=== PATIENT | female | born 1930 | race Caucasian/White ===

== ENCOUNTER 2016-09-20 00:57 | Emergency (ER) | payer MEDICARE, BC ==
--- NOTE | 2016-09-20 01:36 | ERPHSYRPT ---
- History of Present Illness Time Seen by Provider: 09/20/16 01:21 Source: patient, family (DAUGHTER), other (N.N.) Exam Limitations: no limitations Patient Subjective Stated Complaint: reports with c/o diarrhea x 3 days et decreased appetite, despite dementia - up to bathroom tonight x 40 minutes ago with fall from seated position on the stool, landing on soft stack of toilet paper - family reports some momentary AMS but no LOC - pt denies pain at this time Triage Nursing Assessment: lifted to cart per ems personnel - moves all extremities with equal strength. resps easy - non-labored. skin pwd - no rash/ injury. alert/oriented x 1 - pleasantly confused per normal - pupils SHANEL: 3mm , sluggish Physician History: ABOUT 80 MINUTES AGO PT WAS SITTING ON THE TOILET LEANING OVER TO THE RIGHT SIDE ON TOILET PAPER STARRING WITHOUT TREMORS OR SHAKING. PT DENIES ANY PAIN, SHORTNESS OF AIR, ABDOMINAL PAIN; ADMITS TO DIARRHEA. PT HAS NEVER HAD SEIZURES. Allergies/Adverse Reactions: No Known Drug Allergies Allergy (Verified 09/20/16 01:09) Home Medications: Diltiazem HCl [Diltiazem ER] 360 mg PO DAILY 05/02/15 [History] Famotidine 20 mg [Pepcid 20 MG] 20 mg PO BID 05/02/15 [History] Simvastatin 10 mg PO DAILY 05/02/15 [History] Magnesium 400 mg PO DAILY 09/22/15 [History] Rivaroxaban [Xarelto] 10 mg PO DAILY 09/22/15 [History] Losartan Potassium 50 mg [Cozaar 50 MG] 50 mg PO DAILY 10/22/15 [History] Rabeprazole Sodium [Aciphex] 20 mg PO DAILY 10/22/15 [History] Bumetanide 1 mg [Bumex 1 mg] 1 mg PO DAILY 01/04/16 [History] Potassium Chloride 10 Meq Tab* [Klor Con 10 MEQ] 10 meq PO BID 01/04/16 [ History] Memantine HCl 5 mg [Namenda 5 MG] 5 mg PO DAILY 01/14/16 [History] Hx Tetanus, Diphtheria Vaccination/Date Given: No Hx Influenza Vaccination/Date Given: No Hx Pneumococcal Vaccination/Date Given: No Immunizations Up to Date: Yes - Review of Systems Constitutional: No Fever, No Chills Respiratory: No Dyspnea Cardiac: No Chest Pain Abdominal/Gastrointestinal: Diarrhea, No Abdominal Pain, No Vomiting Neurological: No Headache Endocrine: No Excessive Sweating All Other Systems: Reviewed and Negative - Past Medical History Pertinent Past Medical History: Yes Neurological History: Dementia ENT History: No Pertinent History Cardiac History: Other Respiratory History: No Pertinent History Endocrine Medical History: No Pertinent History Musculoskeletal History: Arthritis GI Medical History: Diverticulitis, GERD, Hemorrhoids History: No Pertinent History Psycho-Social History: No Pertinent History Female Reproductive Disorders: No Pertinent History Other Medical History: leaking valve per pt. - Past Surgical History Past Surgical History: Yes Neuro Surgical History: No Pertinent History Cardiac: No Pertinent History Respiratory: No Pertinent History Gastrointestinal: Cholecystectomy Genitourinary: No Pertinent History Musculoskeletal: Other Female Surgical History: Hysterectomy, Mastectomy Other Surgical History: right breast mastectomy,bunionectomy venita. feet,,venita IOL with lens implant,cyst exc.buttock and posterior leg,exc. salivary gland,left upper arm sutured after knife cut. - Social History Smoking Status: Never smoker Exposure to second hand smoke: No Alcohol Use: None Drug Use: none Patient Lives Alone: No Significant Family History: no pertinent family hx - Female History Hx Last Menstrual Period: n/a Hx Now: No - Nursing Vital Signs Nursing Vital Signs: Initial Vital Signs Temperature 98.4 F Temperature Source Oral Pulse Rate 90 Respiratory Rate 14 Blood Pressure [] 111/59 Pain Intensity 0 - Physical Exam General Appearance: no apparent distress, alert Eye Exam: PERRL/EOMI, eyes nml inspection Ears, Nose, Throat Exam: TMs normal, pharynx normal, moist mucous membranes Neck Exam: normal inspection Respiratory Exam: lungs clear Cardiovascular Exam: normal heart sounds Gastrointestinal/Abdomen Exam: soft, other (B.S. MILDLY HYPERACTIVE AND NORMOTONIC) Back Exam: normal range of motion Extremity Exam: normal range of motion, No pedal edema Neurologic Exam: alert, cooperative, normal mood/affect, sensation nml, other ( ORIENTED TO PERSON AND PLACE.), No motor deficits Skin Exam: warm, dry SpO2 Interpretation: normal SpO2: 95 Oxygen Delivery: Room Air - Course Nursing assessment & vital signs reviewed: Yes EKG Interpreted by Me: RATE (91), Sinus Rhythm, NORMAL AXIS, Non-specific ST Changes - Radiology Exams Chest X-ray Interpretation: Interpreted by me, No Pneumonia - CT Exams Head CT Interpretation: Tele-radiologist Report (NO EVIDENCE OF ACUTE INTRA-AXIAL OR CRANIAL BONE ABNORMALITIES.) Ordered Tests: Active Orders 24 hr Category Date Time Status ACCUCHECK [Accucheck] STAT Care 09/20/16 01:17 Active Cath [Catheter-[place]] STAT Care 09/20/16 02:00 Active EKG-ER Only STAT Care 09/20/16 01:20 Active IV Insertion STAT Care 09/20/16 01:37 Active CHEST 1 VIEW (PORTABLE) Stat Exams 09/20/16 01:38 Taken HEAD WITHOUT CONTRAST [CT] Stat Exams 09/20/16 01:37 Taken AMYLASE Stat Lab 09/20/16 01:50 Completed CBC W DIFF Stat Lab 09/20/16 01:50 Completed CMP Stat Lab 09/20/16 01:50 Completed LIPASE Stat Lab 09/20/16 01:50 Completed MAG [MAGNESIUM] Stat Lab 09/20/16 01:50 Completed Manual Differential NC Stat Lab 09/20/16 01:50 Completed TROPONIN Stat Lab 09/20/16 01:50 Completed UA W/ MICROSCOPIC Stat Lab 09/20/16 02:00 Completed Urine Triage Profile Stat Lab 09/20/16 02:00 Completed Medication Summary Generic Name Dose Route Start Last Admin Trade Name Freq PRN Reason Stop Dose Admin Sodium Chloride 1,000 mls @ 999 mls/hr 09/20/16 02:39 Sodium Chloride 0.9% 1000 Ml IV 09/20/16 03:39 .Q1H1M STA Discontinued Medications Generic Name Dose Route Start Last Admin Trade Name Freq PRN Reason Stop Dose Admin Sodium Chloride 1,000 mls @ 999 mls/hr 09/20/16 01:37 09/20/16 02:00 Sodium Chloride 0.9% 1000 Ml IV 09/20/16 02:37 999 mls/hr .Q1H1M STA Administration Sodium Chloride Confirm 09/20/16 01:47 Sodium Chloride 0.9% 1000 Ml Administered 09/20/16 01:48 Dose 1,000 mls @ ud .ROUTE .[employer] Lab/Rad Data: Laboratory Result Diagrams 09/20/16 01:50 09/20/16 01:50 Laboratory Results 09/20/16 09/20/16 09/20/16 Range/Units 02:00 02:00 01:50 WBC (4.0-10.5) K/mm3 RBC (4.1-5.4) M/mm3 Hgb (12.0-16.0) gm/dl Hct (35-47) % MCV (78-100) fl MCH (26-32) pg MCHC (32-36) g/dl RDW (11.5-14.0) % Plt Count (150-450) K/mm3 MPV (6-9.5) fl Segmented Neutrophils (36.0-66.0) % Lymphocytes (Manual) (24-44) % Monocytes (Manual) (0.0-12.0) % Differential Comment Platelet Estimate (NORMAL) Sodium (136-145) mEq/L Potassium (3.5-5.1) mEq/L Chloride (98-107) mEq/L Carbon Dioxide (21-32) mEq/L Anion Gap (5-15) MEQ/L BUN (9-20) mg/dL Creatinine (0.55-1.30) mg/dl Estimated GFR ML/MIN Glucose (70-110) MG/DL Calcium (8.5-10.1) mg/dL Magnesium 2.1 (1.8-2.4) mg/dL Total Bilirubin (0.2-1.0) mg/dL AST (15-37) U/L ALT (12-78) U/L Alkaline Phosphatase (46-116) U/L Troponin I (0.000-0.056) ng/ml Serum Total Protein (6.4-8.2) gm/dL Albumin (3.4-5.0) g/dL Amylase (25-115) U/L Lipase (73-393) U/L Ur Collection Type CATH Urine Color YELLOW (YELLOW) Urine Appearance CLEAR (CLEAR) Urine pH 5.5 (5-6) Ur Specific [place] 1.010 (1.005-1.025) Urine Protein TRACE (Negative) Urine Glucose (UA) NEGATIVE (NEGATIVE) mg/dL Urine Ketones NEGATIVE (NEGATIVE) Urine Nitrite NEGATIVE (NEGATIVE) Urine Bilirubin NEGATIVE (NEGATIVE) Urine Urobilinogen 0.2 (0-1) mg/dL Urine WBC (Auto) NEGATIVE (NEGATIVE) Urine RBC (Auto) NEGATIVE (0-5) Wallace/ul Urine Bacteria RARE (NEGATIVE) /HPF Urine Mucus SLIGHT (NEGATIVE) /HPF Urine Opiates Level NEG. (NEGATIVE) Ur Methadone NEG. (NEGATIVE) Urine Barbiturates NEG. (NEGATIVE) Ur Phencyclidine (PCP) NEG. (NEGATIVE) Urine Amphetamine NEG. (NEGATIVE) U Benzodiazepine Level NEG. (NEGATIVE) Urine Cocaine NEG. (NEGATIVE) Urine Marijuana (THC) NEG. (NEGATIVE) Specimen Received 09/20/16:0200 09/20/16 09/20/16 Range/Units 01:50 01:50 WBC 7.0 (4.0-10.5) K/mm3 RBC 4.00 L (4.1-5.4) M/mm3 Hgb 12.2 (12.0-16.0) gm/dl Hct 37.1 (35-47) % MCV 92.8 (78-100) fl MCH 30.5 (26-32) pg MCHC 32.9 (32-36) g/dl RDW 13.4 (11.5-14.0) % Plt Count 290 (150-450) K/mm3 MPV 10.3 H (6-9.5) fl Segmented Neutrophils 86 H (36.0-66.0) % Lymphocytes (Manual) 6 L (24-44) % Monocytes (Manual) 8 (0.0-12.0) % Differential Comment NORMAL Platelet Estimate NORMAL (NORMAL) Sodium 134 L (136-145) mEq/L Potassium 4.3 (3.5-5.1) mEq/L Chloride 97 L (98-107) mEq/L Carbon Dioxide 27.7 (21-32) mEq/L Anion Gap 13.1 (5-15) MEQ/L BUN 33 H (9-20) mg/dL Creatinine 1.41 H (0.55-1.30) mg/dl Estimated GFR 38 ML/MIN Glucose 123 H (70-110) MG/DL Calcium 9.1 (8.5-10.1) mg/dL Magnesium (1.8-2.4) mg/dL Total Bilirubin 0.3 (0.2-1.0) mg/dL AST 19 (15-37) U/L ALT 10 L (12-78) U/L Alkaline Phosphatase 152 H (46-116) U/L Troponin I < 0.017 (0.000-0.056) ng/ml Serum Total Protein 7.4 (6.4-8.2) gm/dL Albumin 3.4 (3.4-5.0) g/dL Amylase 45 (25-115) U/L Lipase 195 (73-393) U/L Ur Collection Type Urine Color (YELLOW) Urine Appearance (CLEAR) Urine pH (5-6) Ur Specific [place] (1.005-1.025) Urine Protein (Negative) Urine Glucose (UA) (NEGATIVE) mg/dL Urine Ketones (NEGATIVE) Urine Nitrite (NEGATIVE) Urine Bilirubin (NEGATIVE) Urine Urobilinogen (0-1) mg/dL Urine WBC (Auto) (NEGATIVE) Urine RBC (Auto) (0-5) Wallace/ul Urine Bacteria (NEGATIVE) /HPF Urine Mucus (NEGATIVE) /HPF Urine Opiates Level (NEGATIVE) Ur Methadone (NEGATIVE) Urine Barbiturates (NEGATIVE) Ur Phencyclidine (PCP) (NEGATIVE) Urine Amphetamine (NEGATIVE) U Benzodiazepine Level (NEGATIVE) Urine Cocaine (NEGATIVE) Urine Marijuana (THC) (NEGATIVE) Specimen Received - Departure Time of Disposition: 03:03 Departure Disposition: Home Clinical Impression: DEHYDRATION, DIARRHEA, DEMENTIA, ALTERED MENTAL STATUS, ARTHRITIS, GERD Condition: Fair Critical Care Time: No Referrals: KIRAN OBREGON MD [Primary Care Provider] - Instructions: Dehydration -- Adult, Diarrhea and Traveler's Diarrhea -- Adult Additional Instructions: FOLLOW UP WITH PRIVATE DOCTOR TOMORROW. DRINK MORE WATER.
[2016-09-20] MEDS ORDERED: Sodium Chloride 0.9% 1000 ML 1,000 ML IV STA ×2 (01:37→02:39)
[2016-09-20] MEDS ORDERED: Sodium Chloride 0.9% 1000 ML 1,000 ML ONE ×2 (01:47→03:03)
[2016-09-20 01:58] LABS: Mean Cell Volume 92.8 fl (78-100); Mean Corpuscular Hemoglobin 30.5 pg (26-32); Mean Platelet Volume 10.3 fl (6-9.5); Platelet Count 290 K/mm3 (150-450); Red Cell Distribution Width 13.4 % (11.5-14.0)
[2016-09-20 02:07] LABS: Bacteria RARE /HPF (NEGATIVE); COMPLETE URINE MICROSCOPIC? YES; Collection Type CATH; Mucus SLIGHT /HPF (NEGATIVE); Ph 5.5 (5-6)
[2016-09-20 02:20] LABS: ALBUMIN 3.4 g/dL (3.4-5.0); ALKALINE PHOSPHATASE 152 U/L (46-116); ANION GAP 13.1 MEQ/L (5-15); BILIRUBIN,TOTAL 0.3 mg/dL (0.2-1.0); BLOOD UREA NITROGEN 33 mg/dL (9-20); CHLORIDE 97 mEq/L (98-107); Carbon Dioxide 27.7 mEq/L (21-32); Glucose 123 MG/DL (70-110); LIPASE 195 U/L (73-393); Potassium 4.3 mEq/L (3.5-5.1); SGOT/AST 19 U/L (15-37); SGPT/ALT 10 U/L (12-78); SODIUM 134 mEq/L (136-145); Total Protein 7.4 gm/dL (6.4-8.2)
[2016-09-20 02:21] LABS: TROPONIN < 0.017 ng/ml (0.000-0.056)
[2016-09-20 03:01] LABS: Platelet Estimate NORMAL (NORMAL); Total Cells Counted 100
[2016-09-20 05:28] VITALS: BP 125/60; PULSE 89; O2SAT 98
--- NOTE | 2016-09-20 08:56 | XRAY ---
Indication: Altered mental status. Multiple contiguous axial images obtained through the head without contrast. Comparison: January 14, 2016 Stable age-appropriate global atrophy and minimal periventricular degenerative micro-ischemia. No acute intracranial hemorrhage, abnormal extra-axial fluid collection, or mass effect. Fourth ventricle is midline without hydrocephalus. Bony calvarium intact. Visualized paranasal sinuses and mastoid air cells are pneumatized and clear. Impression: Stable nonacute senile brain. Comment: Preliminary interpretation was made by [facility]. No discrepancy. CT DI 68.81
--- NOTE | 2016-09-20 08:57 | XRAY ---
Indication: Altered mental status. Comparison: January 04, 2016 Portable chest less inflated today again with right mastectomy, right axillary rose mary dissection, and scattered calcified granulomas. No focal infiltrate, consolidation, or large effusion. Heart is not enlarged. Bony thorax intact again with osteopenia and degenerative changes. Impression: Stable nonacute chest with chronic features.
== END 2016-09-20 04:29 | disposition home or self-care (01) ==
LOC: ED 00:57
DX: E86.0 Dehydration (principal); R19.7 Diarrhea, unspecified; F03.90 Unspecified dementia, unspecified severity, without behavioral disturbance, psychotic disturbance, mood disturbance, and anxiety; R41.82 Altered mental status, unspecified; M19.90 Unspecified osteoarthritis, unspecified site; K21.9 Gastro-esophageal reflux disease without esophagitis; W18.12XA Fall from or off toilet with subsequent striking against object, initial encounter; Z79.01 Long term (current) use of anticoagulants
CPT/HCPCS: 36000; 36415; 51702; 70450; 71010; 80053; 80307; 81000; 82150; 82962; 83690; 83735; 84484; 85025; 93005; 96360; 96361; 99284

== ENCOUNTER 2017-03-04 14:13 | Observation (INO) | payer MEDICARE, OTHER ==
[2017-03-04 14:29] LABS: Lactic Acid 3.9 (0.4-2.0)
[2017-03-04 14:31] LABS: Bilirubin NEGATIVE (NEGATIVE); Blood NEGATIVE Ery/ul (0-5); COMPLETE URINE MICROSCOPIC? YES; Collection Type CATH; Glucose 100 mg/dL (NEGATIVE); Leukocyte Esterase NEGATIVE (NEGATIVE)
[2017-03-04 14:32] LABS: BASOPHIL % 0.2 % (0.0-0.4); Eosinophil % 0.3 % (0.00-5.0); Granulocytes % 75.3 % (36.0-66.0); Lymphocytes % 15.6 % (24.0-44.0); Mean Cell Volume 90.8 fl (78-100); Mean Corpuscular Hemoglobin 30.5 pg (26-32); Monocytes % 8.6 % (0.0-12.0); Platelet Count 197 K/mm3 (150-450); Red Blood Count 4.23 M/mm3 (4.1-5.4); Red Cell Distribution Width 13.1 % (11.5-14.0); White Blood Count 5.8 K/mm3 (4.0-10.5)
[2017-03-04 14:42] LABS: ADD URINE CULTURE? NO (NO); Bacteria FEW /HPF (NEGATIVE); Epithelial Cells FEW /HPF (FEW)
[2017-03-04 15:04] LABS: ALBUMIN 3.7 g/dL (3.4-5.0); ALKALINE PHOSPHATASE 145 U/L (46-116); ANION GAP 18.5 MEQ/L (5-15); BLOOD UREA NITROGEN 14 mg/dL (9-20); CHLORIDE 89 mEq/L (98-107); Carbon Dioxide 24.1 mEq/L (21-32); Glucose 240 MG/DL (70-110); MAGNESIUM 1.8 mg/dL (1.8-2.4); Potassium 3.6 mEq/L (3.5-5.1); SGOT/AST 24 U/L (15-37); SODIUM 128 mEq/L (136-145); Total Protein 7.8 gm/dL (6.4-8.2)
[2017-03-04 15:12] LABS: SGPT/ALT 17 U/L (12-78)
[2017-03-04] MEDS ORDERED: Sodium Chloride 0.9% 1000 ML 1,000 ML IV SCH (15:15)
[2017-03-04] MEDS ORDERED: Sodium Chloride 0.9% 1000 ML 1,000 ML ONE (15:17)
[2017-03-04 15:19] LABS: TROPONIN < 0.017 ng/ml (0.000-0.056)
--- NOTE | 2017-03-04 15:47 | ERPHSYRPT ---
- History of Present Illness Time Seen by Provider: 03/04/17 14:14 Source: patient, family (daughter), EMS Patient Subjective Stated Complaint: daughter states pt has been feeling weak and not eating very well. daughter states this became worse today. Triage Nursing Assessment: pt pink, warm, dry. normally confused. has hx of alzheimers. pt afebrile. pt alert adn oriented x2. Physician History: CC: weakness Hx: 86 y/o patient of dr Obregon. She was doing mostly ok yest. Today she does not want to eat, weak all over, dizzy when up, some short of air. No fever chills, vomiting, diarrhea. No fall or injury. She has hx of dementia. She lives at home with daughter. Apparently not known to be diabetic. Allergies/Adverse Reactions: No Known Drug Allergies Allergy (Verified 03/04/17 14:18) Home Medications: Famotidine 20 mg [Pepcid 20 MG] 20 mg PO BID 05/02/15 [History] Simvastatin 10 mg PO DAILY 05/02/15 [History] Magnesium 400 mg PO DAILY 09/22/15 [History] Rivaroxaban [Xarelto] 10 mg PO DAILY 09/22/15 [History] Losartan Potassium 50 mg [Cozaar 50 MG] 50 mg PO DAILY 10/22/15 [History] Rabeprazole Sodium [Aciphex] 20 mg PO DAILY 10/22/15 [History] Bumetanide 1 mg [Bumex 1 mg] 1 mg PO DAILY 01/04/16 [History] Potassium Chloride 10 Meq Tab* [Klor Con 10 MEQ] 10 meq PO BID 01/04/16 [ History] Memantine HCl 5 mg [Namenda 5 MG] 5 mg PO DAILY 01/14/16 [History] Donepezil HCl 10 mg [Aricept 10 MG] 10 mg PO DAILY 03/04/17 [History] Hx Tetanus, Diphtheria Vaccination/Date Given: Yes (up to date) Hx Influenza Vaccination/Date Given: Yes (up to date) Hx Pneumococcal Vaccination/Date Given: Yes Immunizations Up to Date: Yes - Review of Systems Constitutional: Fatigue, Malaise, Weakness, Other (anorexic today), No Fever, No Chills Eyes: No Symptoms Ears, Nose, & Throat: No Symptoms Respiratory: No Cough, No Dyspnea Cardiac: No Chest Pain Abdominal/Gastrointestinal: No Abdominal Pain, No Nausea, No Vomiting, No Diarrhea Genitourinary Symptoms: No Dysuria Musculoskeletal: No Fall, No Injury Skin: No Rash Neurological: Dizziness, No Focal Weakness, No Headache, No Parasthesia All Other Systems: Reviewed and Negative - Past Medical History Pertinent Past Medical History: Yes Neurological History: Alzheimer's Disease, Dementia ENT History: No Pertinent History Cardiac History: Other Respiratory History: No Pertinent History Endocrine Medical History: No Pertinent History Musculoskeletal History: Arthritis GI Medical History: Diverticulitis, GERD, Hemorrhoids History: No Pertinent History Psycho-Social History: No Pertinent History Female Reproductive Disorders: No Pertinent History Other Medical History: leaking valve per pt. - Past Surgical History Past Surgical History: Yes Neuro Surgical History: No Pertinent History Cardiac: No Pertinent History Respiratory: No Pertinent History Gastrointestinal: Cholecystectomy Genitourinary: No Pertinent History Musculoskeletal: Other Female Surgical History: Hysterectomy, Mastectomy Other Surgical History: right breast mastectomy,bunionectomy venita. feet,,venita IOL with lens implant,cyst exc.buttock and posterior leg,exc. salivary gland,left upper arm sutured after knife cut. - Social History Smoking Status: Former smoker Exposure to second hand smoke: No Alcohol Use: None Drug Use: none Patient Lives Alone: No (lives with daughter) Significant Family History: no pertinent family hx - Female History Hx Now: No - Nursing Vital Signs Nursing Vital Signs: Initial Vital Signs Temperature 96.4 F Temperature Source Rectal Pulse Rate 73 Respiratory Rate 18 Blood Pressure [Right Arm] 159/81 Pain Intensity 0 - Physical Exam General Appearance: alert Eye Exam: PERRL/EOMI Ears, Nose, Throat Exam: moist mucous membranes Neck Exam: normal inspection, non-tender, supple Respiratory Exam: normal breath sounds Cardiovascular Exam: regular rate/rhythm Gastrointestinal/Abdomen Exam: soft, No tenderness, No distention Extremity Exam: normal inspection, No pedal edema Neurologic Exam: alert, cooperative, sensation nml, No motor deficits Skin Exam: warm, dry, No rash SpO2 Interpretation: normal SpO2: 96 Oxygen Delivery: Room Air Comments: 03/04/17 15:48 disoriented to date, knows daughter's name, place - Course Nursing assessment & vital signs reviewed: Yes EKG Interpreted by Me: RATE (65), Sinus [place], NORMAL AXIS, prolonged QT interval (QTc 475), Other (U wave) - Radiology Exams cxr X-ray Interpretation: Reviewed by me (COPD) Ordered Tests: Active Orders 24 hr Category Date Time Status Cath for Specimen-Straight STAT Care 03/04/17 14:30 Active EKG-ER Only STAT Care 03/04/17 14:14 Active IV Insertion STAT Care 03/04/17 14:14 Active Orthostatic Vital Signs STAT Care 03/04/17 14:39 Active Rectal Temperature STAT Care 03/04/17 14:30 Active CHEST 1 VIEW (PORTABLE) Stat Exams 03/04/17 14:14 Taken CBC W DIFF Stat Lab 03/04/17 14:28 Completed CMP Stat Lab 03/04/17 14:28 Completed Lactic Acid Stat Lab 03/04/17 14:27 Results MAGNESIUM Stat Lab 03/04/17 14:28 Completed TROPONIN Stat Lab 03/04/17 14:28 Completed UA W/ MICROSCOPIC Stat Lab 03/04/17 14:28 Completed Medication Summary Generic Name Dose Route Start Last Admin Trade Name Coltq PRN Reason Stop Dose Admin Sodium Chloride 1,000 mls @ 100 mls/hr 03/04/17 15:15 03/04/17 15:20 Sodium Chloride 0.9% 1000 Ml IV 04/03/17 15:14 100 mls/hr .Q10H EFFIE Administration Lab/Rad Data: Laboratory Result Diagrams 03/04/17 14:28 03/04/17 14:28 Laboratory Results 03/04/17 03/04/17 03/04/17 Range/Units 14:28 14:28 14:28 WBC 5.8 (4.0-10.5) K/mm3 RBC 4.23 (4.1-5.4) M/mm3 Hgb 12.9 (12.0-16.0) gm/dl Hct 38.4 (35-47) % MCV 90.8 (78-100) fl MCH 30.5 (26-32) pg MCHC 33.6 (32-36) g/dl RDW 13.1 (11.5-14.0) % Plt Count 197 (150-450) K/mm3 MPV 11.0 H (6-9.5) fl Gran % 75.3 H (36.0-66.0) % Lymphocytes % 15.6 L (24.0-44.0) % Monocytes % 8.6 (0.0-12.0) % Eosinophils % 0.3 (0.00-5.0) % Basophils % 0.2 (0.0-0.4) % Basophils # 0.01 (0-0.4) Sodium 128 L (136-145) mEq/L Potassium 3.6 (3.5-5.1) mEq/L Chloride 89 L (98-107) mEq/L Carbon Dioxide 24.1 (21-32) mEq/L Anion Gap 18.5 H (5-15) MEQ/L BUN 14 (9-20) mg/dL Creatinine 1.19 (0.55-1.30) mg/dl Estimated GFR 46 ML/MIN Glucose 240 H (70-110) MG/DL Lactic Acid (0.4-2.0) Calcium 9.3 (8.5-10.1) mg/dL Magnesium 1.8 (1.8-2.4) mg/dL Total Bilirubin 0.40 (0.2-1.0) mg/dL AST 24 (15-37) U/L ALT 17 (12-78) U/L Alkaline Phosphatase 145 H (46-116) U/L Troponin I < 0.017 (0.000-0.056) ng/ml Serum Total Protein 7.8 (6.4-8.2) gm/dL Albumin 3.7 (3.4-5.0) g/dL Ur Collection Type CATH Urine Color YELLOW (YELLOW) Urine Appearance CLEAR (CLEAR) Urine pH 7.0 (5-6) Ur Specific [place] 1.005 (1.005-1.025) Urine Protein 30 (Negative) Urine Ketones NEGATIVE (NEGATIVE) Urine Blood NEGATIVE (0-5) Wallace/ul Urine Nitrite NEGATIVE (NEGATIVE) Urine Bilirubin NEGATIVE (NEGATIVE) Urine Urobilinogen NORMAL (0-1) mg/dL Ur Leukocyte Esterase NEGATIVE (NEGATIVE) Ur Epithelial Cells FEW (FEW) /HPF Urine Bacteria FEW (NEGATIVE) /HPF Urine Glucose 100 (NEGATIVE) mg/dL Specimen Received 03-04 1430 03/04/17 Range/Units 14:27 WBC (4.0-10.5) K/mm3 RBC (4.1-5.4) M/mm3 Hgb (12.0-16.0) gm/dl Hct (35-47) % MCV (78-100) fl MCH (26-32) pg MCHC (32-36) g/dl RDW (11.5-14.0) % Plt Count (150-450) K/mm3 MPV (6-9.5) fl Gran % (36.0-66.0) % Lymphocytes % (24.0-44.0) % Monocytes % (0.0-12.0) % Eosinophils % (0.00-5.0) % Basophils % (0.0-0.4) % Basophils # (0-0.4) Sodium (136-145) mEq/L Potassium (3.5-5.1) mEq/L Chloride (98-107) mEq/L Carbon Dioxide (21-32) mEq/L Anion Gap (5-15) MEQ/L BUN (9-20) mg/dL Creatinine (0.55-1.30) mg/dl Estimated GFR ML/MIN Glucose (70-110) MG/DL Lactic Acid 3.9 H (0.4-2.0) Calcium (8.5-10.1) mg/dL Magnesium (1.8-2.4) mg/dL Total Bilirubin (0.2-1.0) mg/dL AST (15-37) U/L ALT (12-78) U/L Alkaline Phosphatase (46-116) U/L Troponin I (0.000-0.056) ng/ml Serum Total Protein (6.4-8.2) gm/dL Albumin (3.4-5.0) g/dL Ur Collection Type Urine Color (YELLOW) Urine Appearance (CLEAR) Urine pH (5-6) Ur Specific [place] (1.005-1.025) Urine Protein (Negative) Urine Ketones (NEGATIVE) Urine Blood (0-5) Wallace/ul Urine Nitrite (NEGATIVE) Urine Bilirubin (NEGATIVE) Urine Urobilinogen (0-1) mg/dL Ur Leukocyte Esterase (NEGATIVE) Ur Epithelial Cells (FEW) /HPF Urine Bacteria (NEGATIVE) /HPF Urine Glucose (NEGATIVE) mg/dL Specimen Received - Progress Progress Note: 03/04/17 15:49 Pt was orthostatic with BP dropping 153/81 to 96/61 with associated dizziness. Will check A1c as not known to be diabetic but hyperglycemia today. Called Dr Thiago Fong for [place] for observation. No source or sign of infection. Will see patient in: hospital (observation) Counseled pt/family regarding: lab results, diagnosis, need for follow-up, rad results - Departure Time of Disposition: 15:50 Departure Disposition: Observation Clinical Impression: Hyponatremia, General weakness, Hyperglycemia, Orthostasis Condition: Stable Critical Care Time: No Referrals: KIRAN OBREGON MD [Primary Care Provider] -
[2017-03-04] MEDS ORDERED: NovoLOG Insulin SQ PRN (16:27)
[2017-03-04] MEDS ORDERED: TYLENOL 325 MG PO PRN (16:27)
--- NOTE | 2017-03-04 20:24 | XRAY ---
Indication: Weakness. Comparison: September 20, 2016. Portable chest again hyperinflated and clear with incidental scattered calcified granulomas. Heart and mediastinal structures within normal limits. Bony thorax intact again with osteopenia and degenerative changes. Stable right breast and right axilla postsurgical changes. Impression: Nonacute hyperinflated chest with chronic features.
[2017-03-04] MEDS: Pepcid 20 MG PO SCH (21:53)
[2017-03-04] MEDS: Klor Con 10 MEQ PO SCH (21:53)
[2017-03-05] MEDS: Sodium Chloride 0.9% 1000 ML 1,000 ML IV SCH ×2 (00:32→10:21)
[2017-03-05 05:28] LABS: BASOPHIL % 0.2 % (0.0-0.4); Eosinophil % 0.5 % (0.00-5.0); Granulocytes % 58.6 % (36.0-66.0); Lymphocytes % 25.6 % (24.0-44.0); Mean Cell Volume 90.3 fl (78-100); Mean Platelet Volume 11.2 fl (6-9.5); Monocytes % 15.1 % (0.0-12.0); Platelet Count 210 K/mm3 (150-450); Red Blood Count 3.62 M/mm3 (4.1-5.4); Red Cell Distribution Width 13.1 % (11.5-14.0); White Blood Count 5.8 K/mm3 (4.0-10.5)
[2017-03-05 05:35] LABS: Mean Corpuscular Hemoglobin 30.3 pg (26-32)
[2017-03-05 05:43] LABS: ANION GAP 13.4 MEQ/L (5-15); BLOOD UREA NITROGEN 17 mg/dL (9-20); CHLORIDE 97 mEq/L (98-107); Carbon Dioxide 25.9 mEq/L (21-32); Glucose 100 MG/DL (70-110); Potassium 4.5 mEq/L (3.5-5.1); SODIUM 132 mEq/L (136-145)
[2017-03-05] MEDS: Pepcid 20 MG PO SCH (08:55)
[2017-03-05] MEDS: Klor Con 10 MEQ PO SCH (08:55)
[2017-03-05] MEDS ORDERED: Protonix 40MG Tablet PO SCH (10:00)
[2017-03-05] MEDS ORDERED: MAGNESIUM 400 MG PO SCH (10:00)
[2017-03-05] MEDS ORDERED: MAG-OX 400 PO SCH (10:00)
[2017-03-05] MEDS ORDERED: Aricept 10 MG PO SCH (10:00)
[2017-03-05] MEDS ORDERED: PREVNAR 13 SYRINGE IM ONE (10:00)
[2017-03-05] MEDS ORDERED: Zocor 10MG PO SCH (10:00)
[2017-03-05] MEDS ORDERED: Namenda 5 MG PO SCH (10:00)
[2017-03-05] MEDS ORDERED: XARELTO 10 MG TABLET PO SCH (10:00)
[2017-03-05] MEDS ORDERED: NON-FORMULARY ITEM (Rabeprazole Sodium [Aciphex] 20 MG) PO SCH (10:00)
[2017-03-05 11:20] VITALS: BP 135/68; PULSE 72; O2SAT 97
--- NOTE | 2017-03-05 13:21 | PCM.SSS ---
History of Present Illness - Chief Complaint Chief Complaint: weakness for 1-2 days History of Present Illness: is a 86 year old female.86 was doing mostly ok yest. Today she does not want to eat, weak all over, dizzy when up, some short of air. No fever chills, vomiting, diarrhea. No fall or injury. She has hx of dementia. She lives at home with daughter. Apparently not known to be diabetic. - Review of Systems Constitutional: Weakness, No Fever, No Chills Eyes: No Symptoms Ears, Nose, & Throat: No Symptoms Respiratory: No Cough, No Short Of Breath Cardiac: No Chest Pain, No Edema, No Syncope Abdominal/Gastrointestinal: No Abdominal Pain, No Nausea, No Vomiting, No Diarrhea Genitourinary Symptoms: No Dysuria Musculoskeletal: No Back Pain, No Neck Pain Skin: No Rash Neurological: No Dizziness, No Focal Weakness, No Sensory Changes Psychological: No Symptoms Endocrine: No Symptoms Hematologic/Lymphatic: No Symptoms Immunological/Allergic: No Symptoms Medications & Allergies Home Medications: Home Medication List Famotidine 20 mg [Pepcid 20 MG] 20 mg PO BID 05/02/15 [History Confirmed 03/04/17] Simvastatin 10 mg PO DAILY 05/02/15 [History Confirmed 03/04/17] Magnesium 400 mg PO DAILY 09/22/15 [History Confirmed 03/04/17] Rivaroxaban [Xarelto] 10 mg PO DAILY 09/22/15 [History Confirmed 03/04/17] Losartan Potassium 50 mg [Cozaar 50 MG] 50 mg PO DAILY 10/22/15 [History Confirmed 03/04/17] Rabeprazole Sodium [Aciphex] 20 mg PO DAILY 10/22/15 [History Confirmed 03/04/17 ] Bumetanide 1 mg [Bumex 1 mg] 1 mg PO DAILY 01/04/16 [History Confirmed 12/16] Potassium Chloride 10 Meq Tab* [Klor Con 10 MEQ] 10 meq PO BID 01/04/16 [ History Confirmed 03/04/17] Memantine HCl 5 mg [Namenda 5 MG] 5 mg PO DAILY 01/14/16 [History Confirmed 03/04/17] Donepezil HCl 10 mg [Aricept 10 MG] 10 mg PO DAILY 03/04/17 [History Confirmed 03/04/17] Allergies/Adverse Reactions: Allergies Allergy/AdvReac Type Severity Reaction Status Date / Time No Known Drug Allergies Allergy Verified 03/04/17 16:29 - Past Medical History Past Medical History: Yes Neurological History: Alzheimer's Disease, Dementia ENT History: No Pertinent History Cardiac History: Other Respiratory History: No Pertinent History Endocrine Medical History: No Pertinent History Musculoskelatal History: Arthritis GI Medical History: Diverticulitis, GERD, Hemorrhoids History: No Pertinent History Pyscho-Social History: No Pertinent History Reproductive Disorders: No Pertinent History Comment: leaking valve per pt. - Female History Are you now?: No - Past Surgical History Past Surgical History: Yes Neuro Surgical History: No Pertinent History Cardiac History: No Pertinent History Respiratory Surgery: No Pertinent History GI Surgical History: Cholecystectomy Genitourinary Surgical Hx: No Pertinent History Musculskeletal Surgical Hx: Other Female Surgical History: Hysterectomy, Mastectomy Other Surgical History: right breast mastectomy,bunionectomy venita. feet,,venita IOL with lens implant,cyst exc.buttock and posterior leg,exc. salivary gland,left upper arm sutured after knife cut. - Social History Smoking Status: Former smoker Exposure to second hand smoke: No Alcohol: None Drug Use: none Significant Family History: no pertinent family hx - Physical Exam Vital Signs: Vital Signs - 24 hr Temp Pulse Resp BP Pulse Ox 03/05/17 11:19 98.1 F 72 18 135/68 97 03/05/17 07:15 98.0 F 78 18 131/74 95 03/05/17 04:00 98.3 F 71 16 129/63 95 03/04/17 23:59 98.4 F 64 18 113/59 96 03/04/17 19:50 97.6 F 68 17 137/77 96 03/04/17 18:00 18 03/04/17 16:31 98.0 F 74 18 148/66 97 03/04/17 16:27 98.0 F 74 18 148/66 97 03/04/17 16:25 98.0 F 74 148/66 03/04/17 15:57 77 18 138/75 97 03/04/17 15:51 96 03/04/17 15:29 73 18 159/81 96 03/04/17 14:15 96.4 F 03/04/17 14:13 96.4 F 67 18 154/82 99 General Appearance: no apparent distress, alert Neurologic Exam: alert, oriented x 3, cooperative, normal mood/affect, nml cerebellar function, nml station & gait, sensation nml, No motor deficits Eye Exam: PERRL/EOMI, eyes nml inspection Ears, Nose, Throat Exam: normal ENT inspection, TMs normal, pharynx normal, moist mucous membranes Neck Exam: normal inspection, non-tender, supple, full range of motion Respiratory Exam: normal breath sounds, lungs clear, No respiratory distress Cardiovascular Exam: regular rate/rhythm, normal heart sounds, normal peripheral pulses Gastrointestinal/Abdomen Exam: soft, normal bowel sounds, No tenderness, No mass Back Exam: normal inspection, normal range of motion, No CVA tenderness, No vertebral tenderness Extremity Exam: normal inspection, normal range of motion, pelvis stable Skin Exam: normal color, warm, dry, No rash Lymphatic Exam: No adenopathy Results - Labs Lab/Micro Results: Accuchecks Date 03/05/17 Date 03/05/17 Date 03/04/17 Date 03/04/17 Time 11:30 Time 07:20 Time 16:30 Accucheck Value: 106 Accucheck Value: 98 Accucheck Value: 102 Accucheck Value: 116 Lab Results-Last 24 Hours 03/04/17 03/05/17 03/05/17 Range/Units 17:09 05:20 05:20 WBC 5.8 (4.0-10.5) K/mm3 RBC 3.62 L (4.1-5.4) M/mm3 Hgb 11.0 L (12.0-16.0) gm/dl Hct 32.7 L (35-47) % MCV 90.3 (78-100) fl MCH 30.3 (26-32) pg MCHC 33.6 (32-36) g/dl RDW 13.1 (11.5-14.0) % Plt Count 210 (150-450) K/mm3 MPV 11.2 H (6-9.5) fl Gran % 58.6 (36.0-66.0) % Lymphocytes % 25.6 (24.0-44.0) % Monocytes % 15.1 H (0.0-12.0) % Eosinophils % 0.5 (0.00-5.0) % Basophils % 0.2 (0.0-0.4) % Basophils # 0.01 (0-0.4) Sodium 132 L (136-145) mEq/L Potassium 4.5 (3.5-5.1) mEq/L Chloride 97 L (98-107) mEq/L Carbon Dioxide 25.9 (21-32) mEq/L Anion Gap 13.4 (5-15) MEQ/L BUN 17 (9-20) mg/dL Creatinine 0.92 (0.55-1.30) mg/dl Estimated GFR > 60 ML/MIN Glucose 100 (70-110) MG/DL Lactic Acid 2.8 H (0.4-2.0) Calcium 8.9 (8.5-10.1) mg/dL Accuchecks Date 03/05/17 Date 03/05/17 Date 03/04/17 Date 03/04/17 Time 11:30 Time 07:20 Time 16:30 Accucheck Value: 106 Accucheck Value: 98 Accucheck Value: 102 Accucheck Value: 116 Assessment/Plan (1) General weakness Current Visit: Yes Status: Resolved Code(s): R53.1 - WEAKNESS (2) Hyperglycemia Current Visit: Yes Status: Resolved Code(s): R73.9 - HYPERGLYCEMIA, UNSPECIFIED (3) Hyponatremia Current Visit: Yes Status: Resolved Code(s): E87.1 - HYPO-OSMOLALITY AND HYPONATREMIA (4) Orthostasis Current Visit: Yes Status: Resolved Code(s): I95.1 - ORTHOSTATIC HYPOTENSION Hospital Summary - Hospital Course Hospital Course: Chief Complaint Diagnosis hyponatremia, hyperglycemia, weakness Allergies Allergy/AdvReac Type Severity Reaction Status Date / Time No Known Drug Allergies Allergy Verified 03/04/17 16:29 Vital Signs (Last 24 hours) Temp Pulse Resp BP Pulse Ox 03/05/17 11:19 98.1 F 72 18 135/68 97 03/05/17 07:15 98.0 F 78 18 131/74 95 03/05/17 04:00 98.3 F 71 16 129/63 95 03/04/17 23:59 98.4 F 64 18 113/59 96 03/04/17 19:50 97.6 F 68 17 137/77 96 03/04/17 18:00 18 03/04/17 16:31 98.0 F 74 18 148/66 97 03/04/17 16:27 98.0 F 74 18 148/66 97 03/04/17 16:25 98.0 F 74 148/66 03/04/17 15:57 77 18 138/75 97 03/04/17 15:51 96 03/04/17 15:29 73 18 159/81 96 03/04/17 14:15 96.4 F 03/04/17 14:13 96.4 F 67 18 154/82 99 Home Medications Medication Instructions Recorded Confirmed Last Taken Type Donepezil HCl 10 mg [Aricept 10 10 mg PO DAILY 03/04/17 03/04/17 03/04/17 History MG] Current Medications Generic Name Dose Route Start Last Admin Trade Name Freq PRN Reason Stop Dose Admin Acetaminophen 650 mg 03/04/17 16:27 Tylenol 325 Mg PO 04/03/17 16:26 Q4H PRN PRN PAIN AND/OR FEVER Donepezil HCl 10 mg 03/05/17 10:00 03/05/17 08:55 Aricept 10 Mg PO 04/04/17 09:59 10 mg DAILY EFFIE Administration Famotidine 20 mg 03/04/17 22:00 03/05/17 08:55 Pepcid 20 Mg PO 04/03/17 21:59 20 mg BID EFFIE Administration Sodium Chloride 1,000 mls @ 100 mls/hr 03/04/17 16:27 03/05/17 10:21 Sodium Chloride 0.9% 1000 Ml IV 04/03/17 16:26 100 mls/hr .Q10H EFFIE Administration Insulin Aspart 0 unit 03/04/17 16:27 Novolog Insulin SQ 04/03/17 16:26 UD PRN HYPERGLYCEMIA Magnesium Oxide 400 mg 03/05/17 10:00 03/05/17 08:55 Mag-Ox 400 PO 04/04/17 09:59 400 mg DAILY EFFIE Administration Memantine 5 mg 03/05/17 10:00 03/05/17 08:55 Namenda 5 Mg PO 04/04/17 09:59 5 mg DAILY EFFIE Administration Pantoprazole Sodium 40 mg 03/05/17 10:00 03/05/17 08:55 Protonix 40mg Tablet PO 04/04/17 09:59 40 mg DAILY EFFIE Administration Potassium Chloride 10 meq 03/04/17 22:00 03/05/17 08:55 Klor Con 10 Meq PO 04/03/17 21:59 10 meq BID EFFIE Administration Simvastatin 10 mg 03/05/17 10:00 03/05/17 08:55 Zocor 10mg PO 04/04/17 09:59 10 mg DAILY EFFIE Administration Discontinued Medications Generic Name Dose Route Start Last Admin Trade Name Gautam PRN Reason Stop Dose Admin Sodium Chloride 1,000 mls @ 100 mls/hr 03/04/17 15:15 03/04/17 15:20 Sodium Chloride 0.9% 1000 Ml IV 04/03/17 15:14 100 mls/hr .Q10H EFFIE Administration Sodium Chloride Confirm 03/04/17 15:17 Sodium Chloride 0.9% 1000 Ml Administered 03/04/17 15:18 Dose 1,000 mls @ ud .ROUTE .STK-MED ONE Pneumococcal 13-Valent Conj Vacc 0.5 ml 03/05/17 10:00 03/05/17 09:00 Prevnar 13 Syringe IM 03/05/17 10:01 0.5 ml .ONCE ONE Administration Intake & Output (Last 24 hours) 03/03/17 03/04/17 03/05/17 03/06/17 11:59 11:59 11:59 11:59 Intake Total 1442 Output Total 300 Balance 1142 Weight 57.697 kg Laboratory Results (Last 24 hours) 03/05/17 03/05/17 03/04/17 05:20 05:20 17:09 WBC 5.8 RBC 3.62 L Hgb 11.0 L Hct 32.7 L MCV 90.3 MCH 30.3 MCHC 33.6 RDW 13.1 Plt Count 210 MPV 11.2 H Gran % 58.6 Lymphocytes % 25.6 Monocytes % 15.1 H Eosinophils % 0.5 Basophils % 0.2 Basophils # 0.01 Sodium 132 L Potassium 4.5 Chloride 97 L Carbon Dioxide 25.9 Anion Gap 13.4 BUN 17 Creatinine 0.92 Estimated GFR > 60 Glucose 100 Hemoglobin A1c Lactic Acid 2.8 H Calcium 8.9 Magnesium Total Bilirubin AST ALT Alkaline Phosphatase Troponin I Serum Total Protein Albumin Ur Collection Type Urine Color Urine Appearance Urine pH Ur Specific [place] Urine Protein Urine Ketones Urine Blood Urine Nitrite Urine Bilirubin Urine Urobilinogen Ur Leukocyte Esterase Ur Epithelial Cells Urine Bacteria Urine Glucose Specimen Received 03/04/17 03/04/17 03/04/17 14:30 14:28 14:28 WBC 5.8 RBC 4.23 Hgb 12.9 Hct 38.4 MCV 90.8 MCH 30.5 MCHC 33.6 RDW 13.1 Plt Count 197 MPV 11.0 H Gran % 75.3 H Lymphocytes % 15.6 L Monocytes % 8.6 Eosinophils % 0.3 Basophils % 0.2 Basophils # 0.01 Sodium 128 L Potassium 3.6 Chloride 89 L Carbon Dioxide 24.1 Anion Gap 18.5 H BUN 14 Creatinine 1.19 Estimated GFR 46 Glucose 240 H Hemoglobin A1c 5.5 Lactic Acid Calcium 9.3 Magnesium 1.8 Total Bilirubin 0.40 AST 24 ALT 17 Alkaline Phosphatase 145 H Troponin I < 0.017 Serum Total Protein 7.8 Albumin 3.7 Ur Collection Type Urine Color Urine Appearance Urine pH Ur Specific [place] Urine Protein Urine Ketones Urine Blood Urine Nitrite Urine Bilirubin Urine Urobilinogen Ur Leukocyte Esterase Ur Epithelial Cells Urine Bacteria Urine Glucose Specimen Received 03/04/17 03/04/17 14:28 14:27 WBC RBC Hgb Hct MCV MCH MCHC RDW Plt Count MPV Gran % Lymphocytes % Monocytes % Eosinophils % Basophils % Basophils # Sodium Potassium Chloride Carbon Dioxide Anion Gap BUN Creatinine Estimated GFR Glucose Hemoglobin A1c Lactic Acid 3.9 H Calcium Magnesium Total Bilirubin AST ALT Alkaline Phosphatase Troponin I Serum Total Protein Albumin Ur Collection Type CATH Urine Color YELLOW Urine Appearance CLEAR Urine pH 7.0 Ur Specific [place] 1.005 Urine Protein 30 Urine Ketones NEGATIVE Urine Blood NEGATIVE Urine Nitrite NEGATIVE Urine Bilirubin NEGATIVE Urine Urobilinogen NORMAL Ur Leukocyte Esterase NEGATIVE Ur Epithelial Cells FEW Urine Bacteria FEW Urine Glucose 100 Specimen Received 03-04 1430 Orders (Last 24 hours) Category Date Time Status Bedrest ROUTINE Activity 03/04/17 16:27 Active Accucheck ACHS Care 03/04/17 16:27 Active Admission/Status Order ROUTINE Care 03/04/17 16:27 Active Call Admit Doctor for Orders ON ADMISSION Care 03/04/17 16:27 Active Cath for Specimen-Straight STAT Care 03/04/17 14:30 Completed Code Status Order ROUTINE Care 03/04/17 16:27 Active EKG-ER Only STAT Care 03/04/17 14:14 Completed Fall Protocol Q1H Care 03/04/17 16:27 Active IV Care Q6H Care 03/04/17 16:27 Active IV Insertion STAT Care 03/04/17 14:14 Completed Intake and Output Q12H Care 03/04/17 16:27 Active Orthostatic Vital Signs STAT Care 03/04/17 14:39 Completed Rectal Temperature STAT Care 03/04/17 14:30 Completed Blair Frank .as ordered Care 03/04/17 16:27 Active Vital Signs Q4H Care 03/04/17 16:27 Active Weight,Daily 0600 Care 03/04/17 16:27 Active 2000 Calorie ADA Diet 03/04/17 Dinner Active CHEST 1 VIEW (PORTABLE) Stat Exams 03/04/17 14:14 Completed BMP AM.LAB Lab 03/05/17 05:20 Completed CBC W DIFF AM.LAB Lab 03/05/17 05:20 Completed CBC W DIFF Stat Lab 03/04/17 14:28 Completed CMP Stat Lab 03/04/17 14:28 Completed HEMOGLOBIN A1C Stat Lab 03/04/17 14:30 Completed Lactic Acid Stat Lab 03/04/17 14:27 Completed Lactic Acid Stat Lab 03/04/17 17:09 Completed MAGNESIUM Stat Lab 03/04/17 14:28 Completed TROPONIN Stat Lab 03/04/17 14:28 Completed UA W/ MICROSCOPIC Stat Lab 03/04/17 14:28 Completed Acetaminophen 325 mg [Tylenol 325 mg] Med 03/04/17 16:27 Active 650 mg PO Q4H PRN PRN Donepezil HCl 10 mg [Aricept 10 MG] Med 03/05/17 10:00 Active 10 mg PO DAILY Famotidine 20 mg [Pepcid 20 MG] Med 03/04/17 22:00 Active 20 mg PO BID Insulin Aspart [NovoLOG Insulin] Med 03/04/17 16:27 Active See Dose Instructions SQ UD PRN Magnesium Oxide 400 mg [Mag-Ox 400] Med 03/05/17 10:00 Active 400 mg PO DAILY Memantine HCl 5 mg [Namenda 5 MG] Med 03/05/17 10:00 Active 5 mg PO DAILY NaCl 0.9% 1000 ml [Sodium Chloride 0.9% 1000 ML] 1,000 Med 03/04/17 15:15 Discontinued ml IV 100 mls/hr NaCl 0.9% 1000 ml [Sodium Chloride 0.9% 1000 ML] 1,000 Med 03/04/17 16:27 Active ml IV 100 mls/hr PANTOPRAZOLE 40 mg Tablet [Protonix 40MG Tablet] Med 03/05/17 10:00 Active 40 mg PO DAILY Pneumoc 13-Ani Conj-Dip Crm/Pf [Prevnar 13 Syringe] Med 03/05/17 10:00 Discontinued 0.5 ml IM .ONCE ONE Potassium Chloride 10 Meq Tab* [Klor Con 10 MEQ] Med 03/04/17 22:00 Active 10 meq PO BID Rivaroxaban 10 mg Tablet [Xarelto 10 mg Tablet] Med 03/05/17 10:00 Active 10 mg PO DAILY Simvastatin 10 mg [Zocor 10MG] Med 03/05/17 10:00 Active 10 mg PO DAILY Transfer Order Routine Transfer 03/04/17 15:52 Completed Patient Care Notes (Last 24 hours) 03/05/17 10:49 Nursing Note by Clau Love PT AMBULATED 260 FT WITH STAND BY ASSIST. GAIT STEADY, NO C/O DIZZINESS OR WEAKNESS Initialized on 03/05/17 10:49 - END OF NOTE - Vitals & Intake/Output Vital Signs: Vital Signs Temperature 98.1 F 03/05/17 11:19 Pulse Rate 72 03/05/17 11:19 Respiratory Rate 18 03/05/17 11:19 Blood Pressure 135/68 03/05/17 11:19 O2 Sat by Pulse Oximetry 97 03/05/17 11:19 Intake & Output: Intake & Output 03/03/17 03/04/17 03/05/17 03/06/17 11:59 11:59 11:59 11:59 Intake Total 1442 Output Total 300 Balance 1142 Weight 57.697 kg - Lab Result Diagrams: 03/05/17 05:20 03/05/17 05:20 Lab Results-Last 24 Hrs: Accuchecks Date 03/05/17 Date 03/05/17 Date 03/04/17 Date 03/04/17 Time 11:30 Time 07:20 Time 16:30 Accucheck Value: 106 Accucheck Value: 98 Accucheck Value: 102 Accucheck Value: 116 Lab Results-Last 24 Hours 03/04/17 03/05/17 03/05/17 Range/Units 17:09 05:20 05:20 WBC 5.8 (4.0-10.5) K/mm3 RBC 3.62 L (4.1-5.4) M/mm3 Hgb 11.0 L (12.0-16.0) gm/dl Hct 32.7 L (35-47) % MCV 90.3 (78-100) fl MCH 30.3 (26-32) pg MCHC 33.6 (32-36) g/dl RDW 13.1 (11.5-14.0) % Plt Count 210 (150-450) K/mm3 MPV 11.2 H (6-9.5) fl Gran % 58.6 (36.0-66.0) % Lymphocytes % 25.6 (24.0-44.0) % Monocytes % 15.1 H (0.0-12.0) % Eosinophils % 0.5 (0.00-5.0) % Basophils % 0.2 (0.0-0.4) % Basophils # 0.01 (0-0.4) Sodium 132 L (136-145) mEq/L Potassium 4.5 (3.5-5.1) mEq/L Chloride 97 L (98-107) mEq/L Carbon Dioxide 25.9 (21-32) mEq/L Anion Gap 13.4 (5-15) MEQ/L BUN 17 (9-20) mg/dL Creatinine 0.92 (0.55-1.30) mg/dl Estimated GFR > 60 ML/MIN Glucose 100 (70-110) MG/DL Lactic Acid 2.8 H (0.4-2.0) Calcium 8.9 (8.5-10.1) mg/dL Micro Results-Entire Visit: Accuchecks Date 03/05/17 Date 03/05/17 Date 03/04/17 Date 03/04/17 Time 11:30 Time 07:20 Time 16:30 Accucheck Value: 106 Accucheck Value: 98 Accucheck Value: 102 Accucheck Value: 116 - Discharge Discharge Date: 03/05/17 Disposition: Home, Self-Care Condition: Stable Prescriptions: Continue Simvastatin 10 mg PO DAILY Famotidine 20 mg [Pepcid 20 MG] 20 mg PO BID Magnesium 400 mg PO DAILY Rivaroxaban [Xarelto] 10 mg PO DAILY Rabeprazole Sodium [Aciphex] 20 mg PO DAILY Losartan Potassium 50 mg [Cozaar 50 MG] 50 mg PO DAILY Bumetanide 1 mg [Bumex 1 mg] 1 mg PO DAILY Potassium Chloride 10 Meq Tab* [Klor Con 10 MEQ] 10 meq PO BID Memantine HCl 5 mg [Namenda 5 MG] 5 mg PO DAILY Donepezil HCl 10 mg [Aricept 10 MG] 10 mg PO DAILY Follow up with: KIRAN OBREGON MD [Primary Care Provider] - Forms: Patient Portal Information
== END 2017-03-05 14:26 | disposition home or self-care (01) ==
LOC: ED 14:13 → MED SURG 16:23
PROVIDERS: ADMIT General Practice; ATTEND General Practice
DX: R53.1 Weakness (principal); R73.9 Hyperglycemia, unspecified; E87.1 Hypo-osmolality and hyponatremia; I95.1 Orthostatic hypotension; Z79.01 Long term (current) use of anticoagulants; Z79.899 Other long term (current) drug therapy; Z23 Encounter for immunization
CPT/HCPCS: 82962 ×2; 93268; 99285; 36000; 96360; 96361; 93005; 81000; 36415 ×2; 83036; 83735; 85025 ×2; 80048; 80053; 84484; 71010; 83605; P9612; 90670; G0009; G0378; A9270-GY